=== PATIENT | male | born 1960 | race Caucasian/White ===

== ENCOUNTER 2017-06-08 19:43 | Emergency (ER) | payer OTHER, SELFPAY ==
[2017-06-08 19:46] VITALS: BP 161/95; PULSE 81; RESP 17; TEMP 36.1; O2SAT 95; BMI 33.3
--- NOTE | 2017-06-08 19:54 | ED.RN ---
SAVANA FROM [facility] [employer] CALLED STATING SHE COULD BE OVER TO TEST PATIENT.
--- NOTE | 2017-06-08 19:54 | ED.RN ---
CALLED [facility] PD DISPATCH TO HAVE AN OFFICER COME UP TO TALK TO PATIENT.
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
--- NOTE | 2017-06-08 20:08 | ED.RN ---
SAVANA FROM [facility] PRESENT IN ED.
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
[2017-06-08 21:35] VITALS: BP 130/94; PULSE 72; RESP 18
== END 2017-06-08 21:36 | disposition home or self-care (01) ==
PROVIDERS: Emergency Provider Emergency Medicine; Family Provider Family Medicine; PCP Family Medicine
DX: S46.911A Strain of unspecified muscle, fascia and tendon at shoulder and upper arm level, right arm, initial encounter (principal); S06.0X0A Concussion without loss of consciousness, initial encounter; R40.2410 Glasgow coma scale score 13-15, unspecified time; Y04.2XXA Assault by strike against or bumped into by another person, initial encounter; Y93.9 Activity, unspecified; Y92.9 Unspecified place or not applicable
CPT/HCPCS: 73030; 99282

== ENCOUNTER 2017-10-30 17:48 | Emergency (ER) | payer OTHER, SELFPAY ==
[2017-10-30 17:50] VITALS: BP 122/89; PULSE 80; RESP 14; TEMP 36.6; BMI 33.5
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
[2017-10-30 20:31] VITALS: BP 134/96; PULSE 65; RESP 18; O2SAT 96
[2017-10-30] MEDS: Ibuprofen 400 MG Tablet PO (20:44)
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
[2017-10-30 22:51] VITALS: BP 131/78; PULSE 74; RESP 16; O2SAT 98
== END 2017-10-30 22:52 | disposition home or self-care (01) ==
PROVIDERS: Emergency Provider Emergency Medicine; Family Provider Family Medicine; PCP Family Medicine
DX: S22.009A Unspecified fracture of unspecified thoracic vertebra, initial encounter for closed fracture (principal); M54.5 Low back pain; Y04.2XXA Assault by strike against or bumped into by another person, initial encounter; Y93.9 Activity, unspecified; Y92.9 Unspecified place or not applicable; I10 Essential (primary) hypertension; Z79.899 Other long term (current) drug therapy
CPT/HCPCS: 72072; 72100; 99282

== ENCOUNTER → 2020-02-27 09:47 | Outpatient (CLI) | payer OTHER, SELFPAY ==
--- NOTE | 2020-02-27 13:49 | STRESSREP_ITS ---
Stress Test Report Date: 02-27-2020 Procedure: Exercise tolerance test Indications: Shortness of breath/dyspnea on exertion Consent: Per the patient Procedure: The patient exercised on a Rudy protocol for 2 minutes and 6 seconds not completing Stage I achieving a peak heart rate of 162 bpm (99% predicted maximal heart rate) with a peak blood pressure 190/90 mmHg and a peak MET capacity of approximately 4 MET's. The baseline ECG demonstrated sinus rhythm; right bundle branch block pattern. The peak exercise ECG demonstrated no obvious ECG changes. There were no cardiac dysrhythmias pretest, during exercise, or recovery. The functional capacity was considered decreased. The patient had no complaint of chest discomfort during exercise or recovery. The examination was discontinued secondary to dyspnea. Impression: 1. Technically adequate (percent predicted maximal heart rate greater than 85%) exercise tolerance test 2. Peak exercise ECG with continued right bundle branch block pattern with no obvious ECG changes 3. There were no cardiac dysrhythmias during exercise or recovery 4. The functional capacity was considered decreased This note was generated with [employer] software. It may contain incorrect words, spelling, and punctuation that were not noted in checking the note before signing.
== END ==
PROVIDERS: PCP Family Medicine; Referring Provider Family Medicine; Visit Provider Family Medicine
DX: R06.00 Dyspnea, unspecified (principal)
CPT/HCPCS: 93017